=== PATIENT | female | born 1940 | race Caucasian/White ===

== ENCOUNTER → 2016-11-19 | Outpatient (CLI) | payer OTHER ==
[~2016-11-19] MED LIST: ALL300; CRG25; IBUP-1050 PO; LSN20
[2016-11-19 17:30] LABS: BASO % 0.3 %; BASO ABS # 0.03 K/uL (0-0.2); COMPLETE YES; EOS % 3.3 %; IG% 0.2 %; LYMPH % 22.1 %; LYMPH ABS # 2.02 K/uL (1.2-3.4); MEAN CELL VOLUME 88.5 fL (80-100); MEAN CORPUSCULAR HEMOGLOBIN 28.4 pg (25-34); MEAN CORPUSCULAR HGB CONC 32.1 g/dl (32-36); MEAN PLATELET VOLUME 10.8 fL (7.4-10.4); MONO % 7.2 %; NEUT % 66.9 %; PLATELET COUNT 291 K/uL (130-400); RED BLOOD COUNT 3.73 M/uL (4.2-5.4); WHITE BLOOD COUNT 9.14 K/uL (4.8-10.8)
[2016-11-19 17:56] LABS: BLOOD UREA NITROGEN 31 mg/dl (7-18); CALCIUM 9.6 mg/dl (8.5-10.1); CARBON DIOXIDE 31 mmol/L (21-32); CHLORIDE 103 mmol/L (98-107); GLUCOSE 79 mg/dl (70-99); POTASSIUM 4.2 mmol/L (3.5-5.1); SODIUM 139 mmol/L (136-145)
[2016-11-19 18:02] LABS: FERRITIN 72.5 ng/ml (8.0-388.0); TOTAL IRON BINDING CAPACITY 346 mcg/dl (250-450)
--- NOTE | 2016-11-24 10:55 | CODING QUERY MEDICAL NECESSITY ---
SUPPORTING DIAGNOSIS NEEDED A supporting diagnosis is required for the test/procedure performed on this patient in order for us to be reimbursed by the patient's insurance. Please provide a supporting diagnosis for the following test/procedure listed below next to the test name along with your signature. *If there is no additional diagnosis for this patient that would support the following test/procedure please document that below next to the test/procedure. Test(s)/Procedure(s) that require a supporting diagnosis: DOS 11/19 * Vitamin B12 DIAGNOSIS: Provider Signature: Date: Thank you Ivonne Cortez [facility] Information Management Once completed, please kindly fax back to [phone] For questions please call [phone]
== END | disposition home or self-care (01) ==
LOC: C.LAB1850 16:16
PROVIDERS: ATTEND Internal Medicine
DX: I42.0 Dilated cardiomyopathy (principal); D64.9 Anemia, unspecified

== ENCOUNTER → 2017-02-22 | Outpatient (CLI) | payer OTHER ==
[2017-02-22 14:47] LABS: BASO % 0.5 %; BASO ABS # 0.03 K/uL (0-0.2); COMPLETE YES; HEMATOCRIT 33.6 % (37-47); IG% 0.2 %; LYMPH % 23.7 %; LYMPH ABS # 1.51 K/uL (1.2-3.4); MEAN CELL VOLUME 87.7 fL (80-100); MEAN CORPUSCULAR HEMOGLOBIN 27.4 pg (25-34); MEAN CORPUSCULAR HGB CONC 31.3 g/dl (32-36); MEAN PLATELET VOLUME 10.6 fL (7.4-10.4); MONO % 8.8 %; NEUT % 63.8 %; PLATELET COUNT 287 K/uL (130-400); RED BLOOD COUNT 3.83 M/uL (4.2-5.4); WHITE BLOOD COUNT 6.36 K/uL (4.8-10.8)
== END | disposition home or self-care (01) ==
LOC: C.LAB1850 12:57
PROVIDERS: ATTEND Internal Medicine
DX: I10 Essential (primary) hypertension (principal)

== ENCOUNTER → 2018-01-03 | Outpatient (CLI) | payer OTHER ==
[2018-01-03 13:30] LABS: BASO % 0.3 %; BASO ABS # 0.02 K/uL (0-0.2); EOS % 2.7 %; EOS ABS # 0.21 K/uL (0-0.5); HEMATOCRIT 33.4 % (37-47); HEMOGLOBIN 10.7 g/dL (12.0-16.0); IG# 0.02 K/uL (0.00-0.02); MEAN CELL VOLUME 86.1 fL (80-100); MEAN CORPUSCULAR HEMOGLOBIN 27.6 pg (25-34); MEAN PLATELET VOLUME 11.2 fL (7.4-10.4); MONO % 6.2 %; MONO ABS # 0.48 K/uL (0.11-0.59); NEUT % 63.5 %; NEUT ABS # 4.95 K/uL (1.4-6.5); PLATELET COUNT 291 K/uL (130-400); RED CELL DISTRIBUTION WIDTH CV 16.4 % (11.5-14.5); RED CELL DISTRIBUTION WIDTH SD 51.1 fL (36.4-46.3); WHITE BLOOD COUNT 7.78 K/uL (4.8-10.8)
[2018-01-03 14:02] LABS: ALBUMIN 3.6 gm/dl (3.4-5.0); BLOOD UREA NITROGEN 27 mg/dl (7-18); CALCIUM 9.7 mg/dl (8.5-10.1); CARBON DIOXIDE 31 mmol/L (21-32); CREATININE 1.39 mg/dl (0.60-1.20); GLUCOSE 85 mg/dl (70-99); POTASSIUM 4.5 mmol/L (3.5-5.1); SODIUM 136 mmol/L (136-145)
[2018-01-03 14:03] LABS: PHOSPHORUS 2.8 mg/dl (2.5-4.9)
== END | disposition home or self-care (01) ==
LOC: C.LAB1850 12:23
PROVIDERS: ATTEND Internal Medicine
DX: I10 Essential (primary) hypertension (principal)

== ENCOUNTER 2019-09-20 04:48 | Inpatient (IN) ==
--- NOTE | 2019-07-25 10:46 | PAT Medication Instructions ---
Medication Instructions Date of Service July 25, 2019 Home Medications Medication Instructions Recorded carvedilol 25 mg tablet 25 mg PO BID #180 tab 06/21/19 allopurinol 300 mg tablet 300 mg PO QAM anastrozole 1 mg tablet 1 mg PO QAM hydrochlorothiazide 25 mg tablet 25 mg PO QAM carvedilol 25 mg tablet 25 mg PO BID ferrous sulfate 325 mg (65 mg iron) tablet 325 mg PO QAM acetaminophen [Tylenol Extra Strength] 500 mg PO Q6H PRN lisinopril 20 mg PO QAM ASK your prescriber and surgeon anastrozole 1 mg tablet 1 mg PO QAM DO NOT take the morning of surgery hydrochlorothiazide 25 mg tablet 25 mg PO QAM ferrous sulfate 325 mg (65 mg iron) tablet 325 mg PO QAM lisinopril 20 mg PO QAM Take morning of surgery With a small sip of water, OTHERWISE NOTHING TO EAT OR DRINK AFTER MIDNIGHT: allopurinol 300 mg tablet 300 mg PO QAM carvedilol 25 mg tablet 25 mg PO BID acetaminophen [Tylenol Extra Strength] 500 mg PO Q6H PRN (okay to take up to 4 hours prior to surgery if needed) Take evening before surgery carvedilol 25 mg tablet 25 mg PO BID acetaminophen [Tylenol Extra Strength] 500 mg PO Q6H PRN (if needed) Other Notes If you have any questions please call us at [phone] or [phone] or [phone] or [phone]
--- NOTE | 2019-07-30 10:42 | Anesthesiology Consultation ---
Date of Service July 30, 2019 Assessment & Plan (1) Encounter for pre-operative examination: - Awaiting cardiology preop evaluation scheduled 09/05 and ECHO scheduled 07/31 ([facility] [place] [facility] Chart Review Chart Review: Patient seen in Pre Admission Testing Teaching & Discussion Pre-Anesthesia Teaching/Discussion Notes: Instructed NPO after midnight before surgery,except medications with 15 cc of water. Medication instructions provided according to the PAT guidelines. History Surgery Operation Date: 09/11/19 07:00 Proposed Procedures p Left Total Hip Arthroplasty - Eyad Boyle MD Height/Weight Height: 5 ft 3 in Weight: 96.4 kg Allergies Allergy/AdvReac Type Severity Reaction Status Date / Time acetaminophen AdvReac Gastrointestinal Verified 07/30/19 09:07 [From Excedrin Migraine] Upset aspirin AdvReac Gastrointestinal Verified 07/30/19 09:07 Upset caffeine AdvReac Gastrointestinal Verified 07/30/19 09:07 [From Excedrin Migraine] Upset Medications Home Medications Medication Instructions Recorded Confirmed Last Taken allopurinol 300 mg tablet 300 mg PO QAM #90 tab 05/22/19 07/30/19 Unknown anastrozole 1 mg tablet 1 mg PO QAM 05/22/19 07/30/19 Unknown hydrochlorothiazide 25 mg tablet 25 mg PO QAM #90 tab 05/22/19 07/30/19 Unknown carvedilol 25 mg tablet 25 mg PO BID #180 tab 06/21/19 07/30/19 Unknown ferrous sulfate 325 mg (65 mg 325 mg PO QAM tab 07/05/19 07/30/19 Unknown iron) tablet acetaminophen [Tylenol Extra 500 mg PO Q6H PRN 07/24/19 07/30/19 Unknown Strength] lisinopril 20 mg PO QAM 07/24/19 07/30/19 Unknown Wheeled Walker #1 ea 07/30/19 07/30/19 Unknown Past Medical History Medical History Back pain Chronic renal insufficiency follows w/nephrology (Dr. Carrera) Congestive heart failure Degenerative joint disease of left hip Gout History of breast cancer s/p B/L mastectomy + oral chemo Hypertension Idiopathic cardiomyopathy LBBB (left bundle branch block) dating back to at least 2004 per prior [facility] EKG's Osteoarthritis Poor historian Exercise / Class Metabolic Activity III < 4 Walking/Shop/Light housework Past Family History Family History Sister Family history of diabetes mellitus Past Surgical History Surgical History History of bilateral mastectomy History of breast biopsy History of cardiac cath 2005= no stents History of tooth extraction Past Anesthesia History No Hx of Anesthesia Complications and No Family Hx of Anesthesia Complications History of PONV No Hx of PONV and No Hx of Motion Sickness Social History Smoking Status: Former smoker Do You Dip or Chew Tobacco: No Smoking End Date: Quit 20+ years ago Hx Alcohol Use: Yes Alcohol type: beer, wine and hard liquor alcohol intake frequency: holidays/special occasions only Hx Substance Use: No substance use type: does not use Review of Systems Diet related reflux (rare). Patient denies chest pain, shortness of breath, cough, wheezing, palpitations. Physical Exam Vital Signs VITALS BP 152/92 P 64 TEMP 98.1 SP02 96%RA RESP 16 PHYSICAL Full neck and c-spine range of motion. Full TMJ range of motion. TMD 2.5 finger breaths Mallampati Score 2 Dentition: intact Lungs: clear throughout to auscultation Cardiac: regular rate and rhythm, III/ systolic murmur Spine: + deviation (?kyphosis/scoliosis) Carotid arteries: negative bruit Extremities: non-pitting b/l le edema Testing Laboratory Results 07/30/19 11:20 07/30/19 11:20 PT 9.6 Seconds (9.0-12.0) 07/30/19 11:20 INR 0.9 (0.9-1.1) 07/30/19 11:20 APTT 25.1 Seconds (21.0-31.0) 07/30/19 11:20 Blood Type A Positive 07/30/19 11:20 Antibody Screen NEGATIVE 07/30/19 11:20 Electrocardiogram Date: 07/30/19 SR with first degree AVB at 63bpm. LAD. LBBB (*LBBB chronic dating back to at least 2004 per prior [facility] EKG's/pt scheduled for ECHO prior to surgery also*). Chest X-Ray Date: 07/30/19 The heart is enlarged noting atherosclerotic calcification of the thoracic aorta. The pulmonary vasculature is noncongested. A hiatal hernia is noted. There is mild bibasilar atelectasis. Degenerative change and mild hyperkyphosis are noted in the thoracic spine. Cardiomegaly with no active disease in the chest. Hiatal hernia. Echocardiogram Date: 04/27/18 EF 55%. Septal motion consistent with BBB. Mild cLVH. Type I DD. Borderline LAE. Mild mitral annular calcification. Mild TR.
--- NOTE | 2019-07-30 12:16 | XRay Report ---
TWO VIEW CHEST CLINICAL HISTORY: Preoperative examination. FINDINGS: PA and lateral chest radiographs are correlated with PET/CT dated 04/05/2018. The PA view is degraded by patient rotation. The heart is enlarged noting atherosclerotic calcification of the thora cic aorta. The pulmonary vasculature is noncongested. A hiatal hernia is noted. There is mild bibasil ar atelectasis. No airspace consolidation or pleural effusion is identified. There is no pneumothorax . The skeletal structures are osteopenic. The bony thorax appears intact. Degenerative change and mil d hyperkyphosis are noted in the thoracic spine. IMPRESSION: 1. Cardiomegaly with no active disease in the chest. 2. Hiatal hernia. Electronically signed by: Tab Hernandez M.D. 07/30/2019 12:15 PM
[2019-07-30 13:06] LABS: Basophils # (auto) 0.03 K/uL (0-0.2); Basophils % (auto) 0.5 %; Eosinophils # (auto) 0.19 K/uL (0-0.5); Eosinophils % (auto) 2.9 %; Hematocrit (blood only) 32.2 % (37-47); Hemoglobin 10.4 g/dL (12.0-16.0); Immature Granulocytes # (auto) 0.01 K/uL (0.00-0.02); Immature Granulocytes % (auto) 0.2 %; Lymphocytes # (auto) 1.77 K/uL (1.2-3.4); Lymphocytes % (auto) 26.7 %; Mean Corpuscular Hemoglobin 29.3 pg (25-34); Mean Corpuscular Hgb Conc 32.3 g/dL (32-36); Mean Corpuscular Volume 90.7 fL (80-100); Mean Platelet Volume 10.4 fL (7.4-10.4); Monocytes # (auto) 0.64 K/uL (0.11-0.59); Monocytes % (auto) 9.7 %; Neutrophils # (auto) 3.98 K/uL (1.4-6.5); Platelet Count 290 K/uL (130-400); RDW Coefficient of Variation 15.2 % (11.5-14.5); RDW Standard Deviation 50.3 fL (36.4-46.3); Red Blood Count 3.55 M/uL (4.2-5.4); White Blood Count 6.62 K/uL (4.8-10.8)
[2019-07-30 13:15] LABS: INR 0.9 (0.9-1.1); Partial Thromboplastin Ratio 0.9; Partial Thromboplastin Time 25.1 Seconds (21.0-31.0); Prothrombin Time 9.6 Seconds (9.0-12.0)
[2019-07-30 14:06] LABS: BUN Creatinine Ratio 25.6 (10-20); C Reactive Protein 0.8 mg/dl (0-0.29); Calcium 10.2 mg/dl (8.5-10.1); Est GFR (African American) 58.5; Est GFR (Non-African American) 50.5; Potassium 4.1 mmol/L (3.5-5.1)
--- NOTE | 2019-09-15 16:43 | History and Physical Report ---
DATE OF ADMISSION: 09/20/2019 CHIEF COMPLAINT: Left hip pain and discomfort. HISTORY OF PRESENT ILLNESS: The patient is a 79-year-old female who presents for surgical treatment of her left hip. She comes on referral by my partner, Dr. Franco, for treatment. She has a long history of hip and back pain that has gradually gotten worse over the years. She has resorted to using a cane to get around. She describes buttock pain, lateral thigh pain, groin pain radiating down to her knee, but no further. Some intermittent numbness. She has got chronic back pain as well. She has become more debilitated by her symptoms over time. Pain has gotten significantly worse in the past 6 months. She is wanting something done if possible. PAST MEDICAL HISTORY: 1. Hypertension. 2. Congestive heart failure followed by Dr. Kramer with a fairly normal echocardiogram. 3. Obesity with a BMI of 37. 4. Low back pain/sciatica. 5. Breast cancer, in remission. 6. Underlying kidney disease and inability to take NSAIDS. PAST SURGICAL HISTORY: Includes bilateral mastectomy. ALLERGIES: None. CURRENT MEDICINES: Include: 1. Carvedilol 25 mg twice a day. 2. Lisinopril 20 mg. 3. Allopurinol 300 mg. 4. Hydrochlorothiazide 25 mg a day. 5. Anastrozole 1 mg a day. SOCIAL HISTORY: A 79-year-old female. She is . Lives by herself. Does not smoke. FAMILY HISTORY: Noncontributory. REVIEW OF SYSTEMS: Significant for some underlying kidney disease and some heart disease. Denies any current chest pain or shortness of breath. No history of DVT or PE. No known bleeding problems. PHYSICAL EXAMINATION: GENERAL: Reveals a healthy pleasant elderly female. Looks to be in pretty good health. HEENT: Benign. NECK: Supple with no lymphadenopathy. LUNGS: Clear to auscultation. HEART: Has a regular rate and rhythm. ABDOMEN: Soft, nontender, nondistended. EXTREMITIES: Grossly neurovascularly intact except as follows: Examination of the left hip reveals the patient walks with a hunched over posture using a cane. She does have some mild diffuse edema in her leg. The left side is a little bit worse than the right. She is about 0.5 cm short on the left side. She does have pain with any type of hip motion, particularly internal rotation. Hip is pretty stiff. Negative straight leg raise. X-RAYS: X-rays of the left hip were reviewed. Shows moderately advanced hip DJD. She has got fairly concentric disease, most consistent with inflammatory arthritis. She has got osteophytes around the femoral head and acetabulum with protrusio appearance to the acetabulum with central wear. She has cystic changes of the femoral head. X-rays of the lumbar spine reveal fairly flat back. Moderate diffuse lumbar spondylosis. ASSESSMENT: A 79-year-old white female with a left lower extremity pain and discomfort consistent with: 1. Left hip degenerative joint disease. 2. Lumbar spondylosis/spinal stenosis. I do think her hip is a limiting factor and probably the more severe and the more significant source of the majority of her symptoms than her back. PLAN: We had a long discussion as far as treatment. I did tell her that the hip replacement surgery is not going to fix everything for her as she has got some underlying back issues and she understands this. She would like to have her left hip fixed. PLAN: We will take her to the operating room and do a left total hip replacement. The risks and benefits of this procedure were explained to the patient including but not limited to DVT, PE, , infection, neurological injury, vascular injury, bleeding problem, pain, limited range of motion, stiffness, failure to relieve symptoms, incomplete relief of symptoms, need for further surgery in the future, fracture, leg length inequality, nerve palsy, dislocation, incomplete relief of symptoms. The patient understands and desires to proceed. She is a and I believe her daughter is going to come and stay with her and she will use [facility]. She knows to hold her lisinopril the morning of surgery and take the carvedilol.
[2019-09-20] MEDS ORDERED: LR 60ML/HR IV SCH (06:00)
[2019-09-20] MEDS ORDERED: CEFAZOLIN 2000MG 2,000 MG/15 ML SYR IV SCH (06:00)
[2019-09-20] MEDS ORDERED: LR 500ML BOLUS, THEN 15ML/HR IV SCH (06:00)
[2019-09-20] MEDS ORDERED: GABAPENTIN 300 MG CAP PO SCH (06:00)
[2019-09-20] MEDS ORDERED: FAMOTIDINE 20 MG TAB PO SCH (06:00)
[2019-09-20] MEDS ORDERED: TRANEXAMIC ACID 1,000 MG **IV Pre-op IV SCH (06:00)
[2019-09-20] MEDS ORDERED: METOCLOPRAMIDE HCL 10 MG TABLET PO SCH (06:00)
[2019-09-20] MEDS ORDERED: ACETAMINOPHEN 500 MG TAB PO SCH (06:00)
[2019-09-20] MEDS ORDERED: BUPIVACAINE 0.5 % 5 MG/1 ML PF 10ML VIAL ONE (06:25)
[2019-09-20] MEDS ORDERED: fentaNYL citrate 100 MCG/2 ML VIAL ONE (06:26)
[2019-09-20] MEDS ORDERED: MIDAZOLAM HCL 1 MG/ML 2ML VIAL ONE (06:26)
[2019-09-20] MEDS ORDERED: MoRPHine SULFATE PF 1 MG/ML 10 ML AMP/VIAL ONE (06:27)
--- NOTE | 2019-09-20 06:50 | History & Physical Bridge Note ---
Date of Service September 20, 2019 History & Physical Bridge Note I have examined the patient, reviewed the History & Physical and in the interval since the performance of the History & Physical I have noted the following changes of clinical significance: no changes noted
[2019-09-20] MEDS ORDERED: BUPIVACAINE/EPINEPHRINE 0.25% 1:200,000 30 ML VIAL ONE (06:59)
[2019-09-20] MEDS ORDERED: SODIUM CHLORIDE 0.9% PF 50 ML VIAL ONE (07:00)
[2019-09-20] MEDS ORDERED: BUPIVACAINE LIPOSOME 1.3% 266 MG/20 ML VIAL ONE (07:00)
[2019-09-20] MEDS ORDERED: BACITRACIN INJ 50,000 UNIT VIAL ONE ×2 (07:00→07:18)
[2019-09-20] MEDS ORDERED: BUPIVACAINE 0.5 % 5 MG/1 ML MPF 30ML VIAL ONE (07:09)
[2019-09-20] MEDS ORDERED: EPINEPHrine INJ 1 MG/ML AMP ONE (07:09)
[2019-09-20] MEDS ORDERED: NALOXONE HCL 0.4 MG/1 ML VIAL/CARP IV PRN (07:21)
[2019-09-20] MEDS ORDERED: PROMETHAZINE HCL 12.5 MG in SODIUM CHLORIDE 0.9% 50 ML IV PRN (07:21)
[2019-09-20] MEDS ORDERED: ONDANSETRON INJ 2 MG/ML 2 ML VIAL IV PRN (07:21)
[2019-09-20] MEDS ORDERED: NALBUPHINE HCL INJ 10 MG/ML AMP IV PRN (07:21)
[2019-09-20] MEDS ORDERED: MoRPHine SULFATE PF 1 MG/ML 10 ML AMP/VIAL INT SPINAL ONE (07:21)
[2019-09-20] MEDS ORDERED: MEPERIDINE HCL 25 MG/ML CARP IV PRN (07:21)
[2019-09-20] MEDS ORDERED: NALOXONE HCL 0.08 MG in SYRINGE 1.8 ML IV PRN (07:21)
[2019-09-20] MEDS ORDERED: LACTATED RINGER'S 500 ML IV PRN (07:21)
[2019-09-20] MEDS ORDERED: DiphenhydrAMINE HCL 50 MG/ML VIAL IV PRN (07:21)
[2019-09-20] MEDS ORDERED: ePHEDrine sulfate 50 MG/ML AMP IV PRN (07:21)
[2019-09-20] MEDS ORDERED: NALOXONE HCL 1 MG in SODIUM CHLORIDE 0.9% 1000ML 1,000 ML IV PRN (07:21)
[2019-09-20] MEDS ORDERED: KETOROLAC TROMETHAMINE 15 MG/ML VIAL IV PRN (07:29)
[2019-09-20] MEDS ORDERED: SODIUM CHLORIDE 0.9% 1000ML 1,000 ML IV SCH (07:30)
[2019-09-20] MEDS ORDERED: NO NARCOTICS OR SEDATIVES SCH (07:30)
[2019-09-20] MEDS ORDERED: PHENYLEPHRINE HCL 10 MG/ML VIAL ONE (07:37)
[2019-09-20] MEDS ORDERED: ePHEDrine sulfate 50 MG/ML SYR ONE ×3 (07:37→08:04)
[2019-09-20] MEDS ORDERED: PROPOFOL IV EMULSION 10 MG/ML 20 ML VIAL IV ONE (07:37)
[2019-09-20] MEDS ORDERED: PHENYLEPHRINE 100MCG/ML 5ML SYR ONE (07:55)
[2019-09-20] MEDS ORDERED: GLYCOPYRROLATE 0.2 MG/ML VIAL ONE (08:04)
--- NOTE | 2019-09-20 09:05 | Post Operative Brief Note ---
PG Immediate Post Op with CF Date of Surgery September 20, 2019 Pre & Post Diagnosis Operation Date: 09/20/19 07:15 Pre-Op Diagnosis: Left Hip Degerative Joint Disease Post-Op Diagnosis: Left Hip Degerative Joint Disease I identified the patient and participated in the time-out.: Yes Procedure Operation Date: 09/20/19 07:15 Actual Procedures p Left Total Hip Arthroplasty(Left) - Eyad Boyle MD Surgeon Eyad Boyle MD Scowman Abby, PAC Estimated Blood Loss 300 Findings Consistent with Post-Op Diagnosis Fluids 700 cc Specimens Specimen Description: Permanent A. Left femoral head Drains Luna Catheter Anesthesia Type Spinal MAC Complications none Disposition Accompanied Patient To Recovery: Yes Disposition: Recovery Room
--- NOTE | 2019-09-20 09:42 | XRay Report ---
XR hip 1V LT w pelvis CLINICAL HISTORY: Postoperative evaluation. COMPARISON: MRI of the left hip/femur April 27, 2018. FINDINGS: Alignment of the total left hip arthroplasty is in the stomach. There is no fracture or un expected radiopaque foreign body. There are skin maged. Acetabular screw is in place. IMPRESSION: Expected findings following total left hip arthroplasty. ACT 112: Negative or not required by law. Electronically signed by: Oscar Orona M.D. 09/20/2019 9:41 AM
--- NOTE | 2019-09-20 10:03 | Anesthesiology Progress Note ---
Date of Service September 20, 2019 Anesthesia Post Procedure Vital Signs Vital Signs: Temp Pulse Pulse Resp BP Pulse Ox 09/20/19 10:00 36.6 C 64 13 118/65 98 09/20/19 09:50 64 13 116/67 99 09/20/19 09:40 67 12 105/61 98 09/20/19 09:30 69 15 114/61 100 09/20/19 09:20 68 17 117/67 100 09/20/19 09:10 71 13 113/70 100 09/20/19 09:01 36.1 C L 73 22 101/64 100 09/20/19 05:32 36.6 C 64 20 170/83 H 98 Transfer of Care Handoff Completed per policy Notes Mental Status: alert / awake / arousable Patient Amnestic to Procedure: Yes Nausea / Vomiting: adequately controlled Pain: adequately controlled Airway Patency, RR, SpO2: stable & adequate BP & HR: stable & adequate Hydration State: stable & adequate Anesthetic Complications: no major complications apparent
[2019-09-20] MEDS ORDERED: ALUMINUM/MAGNESIUM SUSP 30 ML UDC PO PRN (10:34)
[2019-09-20] MEDS ORDERED: bisacodyL 10 MG SUPP PR PRN (10:34)
[2019-09-20] MEDS ORDERED: MAGNESIUM HYDROXIDE SUSP 30 ML UDC PO PRN (10:34)
[2019-09-20] MEDS: SODIUM CHLORIDE 0.9% 1000ML 1,000 ML IV SCH ×2 (11:22→20:16)
--- NOTE | 2019-09-20 11:55 | Operative Report ---
Post Operative Report Pre & Post Diagnosis Operation Date: 09/20/19 07:15 Pre-Op Diagnosis: Left Hip Degerative Joint Disease Post-Op Diagnosis: Left Hip Degerative Joint Disease I identified the patient and participated in the time-out.: Yes Procedure Operation Date: 09/20/19 07:15 Actual Procedures p Left Total Hip Arthroplasty(Left) - Eyad Boyle MD Surgeon Eyad Boyle MD Rn Otolaryngology Abby, PAC Estimated Blood Loss 300 Findings Consistent with Post-Op Diagnosis Operative findings revealed advanced left hip DJD with extensive eburnation of the femoral head circumferentially. She had a protrusio appearance to the acetabulum. She did have full-thickness cartilage wear but not a lot of osteophyte formation. She had a moderate-sized joint effusion. Very stiff hip with a flexion contracture of about 20 to 30 degrees preoperatively. Fluids 700 cc Specimens Left femoral head sent for pathology Drains None. Anesthesia Type Spinal MAC Complications none Disposition Accompanied Patient To Recovery: Yes Disposition: Recovery Room Indications Patient is a 79-year-old female is had a several year history of increasing left hip pain discomfort is gotten significant worse over the past year the point where she is had using a walking assistance device to get around. She is got known back problems as well but symptoms seem to localize more to her hip. She failed all conservative care. X-rays revealed advanced hip DJD. She elected proceed with surgical treatment. Description of Procedure Operative implants consisted of: 1. Biomet G7 size 50 mm acetabular shell. 2. 6.5 cancellus acetabular screws 1 of 35 mm length and 120 mm length. 3. Brunswick hole eliminator. 4. 50 mm outer diameter, 36 mm inner diameter highly cross-linked polyethylene liner. 5. Depuy Corail size 12 KLA femoral stem. 6. +1.5/36 mm ceramic articular ball. Patient was taken to the operating room identified and placed on the operating table supine position protectors were properly padded. IV antibiotics were 5 by anesthesia team. Spinal anesthetic had been implemented holding area. Luna catheter was placed in sterile fashion with patient then placed in the right lateral decubitus position. Axillary roll was placed. Stulberg hip positioner was used for positioning. The left hip and leg were then prepped and draped in usual sterile fashion. A posterior lateral approach to the left hip was then performed to a curvilinear incision centered over the greater trochanter. Sharp dissection Through subcutaneous tissue down below the IT band and gluteal fascia. That the soft tissue envelope was quite thick. The IT band gluteal fascia were then incised longitudinally in line with skin incision. The underlying greater truck bursa was excised. The piriformis and external rotators as well as the posterior capsule were then released as a single guitar player the posterior aspect of the hip joint. Great care was taken throughout the procedure to protect the sciatic nerve at all times. Hip was internally rotated and dislocated. Femoral neck osteotomy cut was made with Final Cut about 5 mm above the lesser trochanter. Femoral head was removed and sent for pathology. The femur was retracted anteriorly. Attention drawn the acetabulum. The acetabular labrum was excised with the pulmonary fat was excised. Sequential reaming the acetabular was then performed given the size 45 and progressing up to a 49. I did anterior the acetabular just with a 50 reamer as it narrowed on the opening. A 50 mm Biomet G7 acetabular shell was then placed in about 40 degrees lateral opening and 25 degrees of anteversion. I did place an additional amp degree of anteversion in this patient due to her flexion contracture and concerned with the posterior instability. This was fixed with two 6.5 cancellus acetabular screws. An anterior osteophyte was removed. The trial liner was placed. Attention drawn the femur. Proximal femur was entered with a cookie-cutter followed by canal finder. I then broached begin the size 8 and progressing up to a 12. We got excellent fit with a 12. Use a calcar reamer to smooth off the calcar. Then trialed the hip with different head sizes. I initially used a standard neck but the everything was too tight particular in extension. I elected to use a coxa vera/KLA neck with the shortest head neck length. Even this was a little bit tight in extension but improved. The hip was fully stable in full extension and external rotation and flexion to 90 degrees internal rotation over [address] We elect to place these implants. Leg lengths appeared equal. All trial implants were removed. An apex hole eliminator was placed. Highly cross-linked polyethylene liner was placed. We did elect to use a 36 head in order to maximize her stability. He size 12 KLA femoral stem was impacted in position. A +1.5/36 mm ceramic articular ball was placed. Hip was located once again found to be stable. Attention drawn toward closing. The wound was irrigated with copious amounts of pulsatile lavage solution. I did inject locally with 60 cc of percent Marcaine with epinephrine. The posterior capsule and external rotators were repaired through drill holes in the posterior trochanter as a single layer with #2 Tycron suture. The IT band gluteal fascia then closed with #1 PDS suture running fashion the subcutaneous tissues then closed with 2 layers of the deep layer #2 Vicryl suture and subcutaneous tissues with 2-0 Dexon suture in a buried interrupted fashion. Skin was closed skin maged. We did place a Liat wound VAC over this incision due to a large soft and thick soft tissue envelope. Patient then transferred to the recovery room in stable condition. Patient tolerated procedure well no complications. I attest to the content of the Intraoperative Record and any orders documented therein. Any exceptions are noted below.
[2019-09-20] MEDS: CEFAZOLIN 2000MG 2,000 MG/15 ML SYR IV SCH ×2 (14:15→22:05)
[2019-09-20] MEDS: ACETAMINOPHEN 500 MG TAB PO SCH ×2 (14:15→22:05)
[2019-09-20] MEDS ORDERED: TRANEXAMIC ACID / 0.7% NACL 1,000 MG/100 ML BAG IV SCH (15:00)
--- NOTE | 2019-09-20 17:21 | Progress Note ---
DATE: 09/20/2019 SUBJECTIVE: A 79-year-old white female postop from a left hip replacement. She is doing well. Not having any pain yet. No chest pain or shortness of breath. Not feeling dizzy or lightheaded. OBJECTIVE: VITAL SIGNS: Temperature 36.4. Vital signs stable. GENERAL: Shows a pleasant elderly female. I had to wake her when I went in her room this afternoon. LUNGS: Clear to auscultation. HEART: Has a regular rate and rhythm. ABDOMEN: Soft, nontender, nondistended. EXTREMITIES: Grossly neurovascularly intact except as follows: Examination of the left hip and leg reveals the leg lengths to be equal. Leg is well aligned. Dressing is clean, dry and intact. Thigh is soft and supple. She can dorsiflex and plantarflex her foot appropriately. X-RAYS: X-rays of the left hip from recovery room are reviewed. It shows a left uncemented total hip arthroplasty. Components looked to be in good position. No signs of problems. ASSESSMENT: A 79-year-old white female postoperative from a left hip replacement, doing well. Hip is located. She is neurologically intact. Pain is controlled. PLAN: 1. DVT prophylaxis including thigh-high TEDs, SCDs, and aspirin twice a day. 2. PT/OT. Weight bear as tolerated. Left total hip protocol. 3. Pain control, doing well with current pain regimen. 4. Disposition: She is hoping to be discharged to home with some home health and some family's assistance once medically stable and recovered.
[2019-09-20] MEDS: FERROUS GLUCONATE 324 MG TAB PO SCH (18:22)
[2019-09-20] MEDS: ASCORBIC ACID 500 MG TAB PO SCH (18:22)
[2019-09-20] MEDS: ASPIRIN 81 MG ECTAB PO SCH (20:16)
[2019-09-20] MEDS: carvediloL 25 MG TAB PO SCH (20:17)
[2019-09-20] MEDS: SENNA 8.6 MG TAB PO SCH (20:17)
[2019-09-20] MEDS: DOCUSATE SODIUM 100 MG CAP PO SCH (20:17)
[2019-09-21] MEDS ORDERED: DC INTRASPINAL MORPHINE SCH (01:21)
[2019-09-21] MEDS ORDERED: HYDROmorphone INJ 0.5 MG/0.5 ML SYR IV PRN (01:22)
[2019-09-21] MEDS ORDERED: NALOXONE HCL 0.4 MG/1 ML VIAL/CARP IV PRN (01:22)
[2019-09-21] MEDS ORDERED: ONDANSETRON INJ 2 MG/ML 2 ML VIAL IV PRN (01:22)
[2019-09-21] MEDS ORDERED: METOCLOPRAMIDE HCL INJ 5 MG/ML 2 ML VIAL IV PRN (01:22)
[2019-09-21 05:29] LABS: Basophils # (auto) 0.01 K/uL (0-0.2); Basophils % (auto) 0.1 %; Eosinophils # (auto) 0.16 K/uL (0-0.5); Eosinophils % (auto) 2.1 %; Hematocrit (blood only) 24.7 % (37-47); Hemoglobin 8.1 g/dL (12.0-16.0); Immature Granulocytes # (auto) 0.02 K/uL (0.00-0.02); Immature Granulocytes % (auto) 0.3 %; Lymphocytes # (auto) 1.02 K/uL (1.2-3.4); Lymphocytes % (auto) 13.4 %; Mean Corpuscular Hemoglobin 29.8 pg (25-34); Mean Corpuscular Hgb Conc 32.8 g/dL (32-36); Mean Corpuscular Volume 90.8 fL (80-100); Monocytes # (auto) 1.12 K/uL (0.11-0.59); Monocytes % (auto) 14.7 %; Neutrophils # (auto) 5.29 K/uL (1.4-6.5); Neutrophils % (auto) 69.4 %; Platelet Count 219 K/uL (130-400); RDW Coefficient of Variation 14.3 % (11.5-14.5); RDW Standard Deviation 47.7 fL (36.4-46.3); Red Blood Count 2.72 M/uL (4.2-5.4); White Blood Count 7.62 K/uL (4.8-10.8)
[2019-09-21] MEDS: ACETAMINOPHEN 500 MG TAB PO SCH ×3 (05:46→21:56)
[2019-09-21 05:51] LABS: BUN Creatinine Ratio 22.8 (10-20); Calcium 8.6 mg/dl (8.5-10.1); Creatinine Clr Calc Pharmacy 44.8 ml/min; Est GFR (African American) 54.1; Est GFR (Non-African American) 46.7; Potassium 4.3 mmol/L (3.5-5.1)
[2019-09-21] MEDS ORDERED: dexAMETHasone 4 MG TAB PO SCH (08:00)
--- NOTE | 2019-09-21 08:03 | Anesthesiology Progress Note ---
Date of Service September 21, 2019 Anesthesia Post Procedure Vital Signs Vital Signs: Temp Pulse Pulse Resp BP Pulse Ox Pulse Ox 09/21/19 07:05 36.4 C L 67 16 139/72 97 09/21/19 02:55 36.5 C 67 16 115/72 98 09/21/19 01:23 16 100 09/21/19 00:17 20 98 09/21/19 00:16 14 100 09/20/19 23:20 16 100 09/20/19 23:05 36.4 C L 56 L 18 106/70 100 09/20/19 22:11 16 100 09/20/19 21:10 12 100 09/20/19 20:13 14 100 09/20/19 20:12 58 L 14 101/65 100 09/20/19 20:10 100 09/20/19 19:21 36.4 C L 58 L 14 108/71 100 09/20/19 18:10 12 100 09/20/19 17:15 14 100 09/20/19 16:15 16 100 09/20/19 15:33 36.4 C L 68 16 107/66 100 09/20/19 15:20 100 09/20/19 15:15 14 96 09/20/19 14:45 16 95 09/20/19 13:50 70 H 99 09/20/19 13:48 96/59 L 09/20/19 13:15 36.4 C L 61 16 85/56 L 100 09/20/19 12:15 36.3 C L 61 16 97/61 L 98 09/20/19 11:26 86 16 104/65 99 09/20/19 10:46 60 14 102/64 99 09/20/19 10:15 62 16 111/77 99 99 09/20/19 10:00 36.6 C 64 13 118/65 98 09/20/19 09:50 64 13 116/67 99 09/20/19 09:40 67 12 105/61 98 09/20/19 09:30 69 15 114/61 100 09/20/19 09:20 68 17 117/67 100 09/20/19 09:10 71 13 113/70 100 09/20/19 09:01 36.1 C L 73 22 101/64 100 Notes Mental Status: alert / awake / arousable and participated in evaluation Patient Amnestic to Procedure: Yes Nausea / Vomiting: adequately controlled Pain: adequately controlled Airway Patency, RR, SpO2: stable & adequate BP & HR: stable & adequate Hydration State: stable & adequate Neuraxial Anesthesia: was administered and sensory block resolved Anesthetic Complications: no major complications apparent and Pt Satisfied with anesthetic care
--- NOTE | 2019-09-21 08:21 | Progress Note ---
DATE: 09/21/2019 SUBJECTIVE: A 79-year-old white female postop day 1 from a left hip replacement. She is doing pretty well. No pain at all while in bed. Having some moderate pain with weightbearing. No chest pain or shortness of breath. Not feeling dizzy or lightheaded. OBJECTIVE: VITAL SIGNS: Temperature 36.4. Vital signs stable. GENERAL: Shows a pleasant, elderly female. She is lying in bed, looks pretty comfortable this morning. EXTREMITIES: Examination of the left leg reveals the leg to be well aligned. She has got chronic swelling of her left foot. Dressing is clean, dry and intact. She can dorsiflex and plantarflex her foot appropriately. She is neurologically intact. LABORATORY DATA: Hemoglobin is 8.1. Hematocrit 24.7. Electrolytes are stable. ASSESSMENT: This is a 79-year-old white female postop day 1 from a left hip replacement, doing reasonably well. Her hemoglobin was a bit low, but she is asymptomatic. Her pain is controlled. PLAN: 1. DVT prophylaxis including thigh-high TEDs, SCDs, and aspirin twice a day. 2. PT/OT. Weight bear as tolerated. Left total hip protocol. 3. Pain control, doing pretty well with current pain regimen. Will have to be careful and limit narcotics to avoid confusion. 4. Anemia. Continue iron supplementation. We will check her H and H tomorrow. We will transfuse unless her hemoglobin goes below 8 and/or symptomatic. 5. Disposition: She is hoping to be discharged home with some home health once adequately recovered and medically stable.
[2019-09-21] MEDS: allopurinoL 300 MG TAB PO SCH (08:58)
[2019-09-21] MEDS: MULTIVITAMIN TAB PO SCH (08:58)
[2019-09-21] MEDS: FERROUS GLUCONATE 324 MG TAB PO SCH ×2 (08:58→16:33)
[2019-09-21] MEDS: ASCORBIC ACID 500 MG TAB PO SCH ×2 (08:59→16:33)
[2019-09-21] MEDS: DOCUSATE SODIUM 100 MG CAP PO SCH ×2 (08:59→21:54)
[2019-09-21] MEDS: TRAMADOL HCL 50 MG TABLET PO PRN ×2 (09:01→21:53)
[2019-09-21] MEDS: ASPIRIN 81 MG ECTAB PO SCH ×2 (09:05→21:55)
[2019-09-21] MEDS: hydroCHLOROthiazide 25 MG TAB PO SCH (09:07)
[2019-09-21] MEDS: lisinopriL 20 MG TAB PO SCH (09:07)
[2019-09-21] MEDS: carvediloL 25 MG TAB PO SCH ×2 (09:07→21:59)
[2019-09-21] MEDS: ANASTROZOLE 1 MG TAB PO SCH (09:08)
[2019-09-21] MEDS: SENNA 8.6 MG TAB PO SCH (21:55)
[2019-09-22] MEDS: ACETAMINOPHEN 500 MG TAB PO SCH (05:21)
[2019-09-22 06:04] LABS: Basophils # (auto) 0.01 K/uL (0-0.2); Basophils % (auto) 0.1 %; Hematocrit (blood only) 25.5 % (37-47); Hemoglobin 8.8 g/dL (12.0-16.0); Immature Granulocytes # (auto) 0.07 K/uL (0.00-0.02); Immature Granulocytes % (auto) 0.4 %; Lymphocytes # (auto) 0.92 K/uL (1.2-3.4); Mean Corpuscular Hemoglobin 30.2 pg (25-34); Mean Corpuscular Hgb Conc 34.5 g/dL (32-36); Mean Corpuscular Volume 87.6 fL (80-100); Monocytes # (auto) 1.63 K/uL (0.11-0.59); Monocytes % (auto) 8.8 %; Neutrophils % (auto) 85.7 %; Platelet Count 238 K/uL (130-400); RDW Coefficient of Variation 14.2 % (11.5-14.5); RDW Standard Deviation 45.4 fL (36.4-46.3); Red Blood Count 2.91 M/uL (4.2-5.4); White Blood Count 18.43 K/uL (4.8-10.8)
[2019-09-22 06:17] LABS: BUN Creatinine Ratio 27.1 (10-20); Calcium 9.9 mg/dl (8.5-10.1); Creatinine Clr Calc Pharmacy 44.8 ml/min; Est GFR (African American) 54.1; Est GFR (Non-African American) 46.7; Potassium 3.9 mmol/L (3.5-5.1)
--- NOTE | 2019-09-22 08:36 | Progress Note ---
DATE: 09/22/2019 SUBJECTIVE: A 79-year-old white female postop day 2 from a left hip replacement. She is doing okay and making progress, but it has been more difficult than she anticipated as far as mobilization. She now would like to go to rehab. Denies any new complaints. Pain is controlled. No chest pain or shortness of breath. Not feeling dizzy or lightheaded. OBJECTIVE: VITAL SIGNS: Temperature 36.6. Vital signs stable. GENERAL: Shows a pleasant elderly female. She is sitting up in her bedside chair, looks comfortable. Color looks good. EXTREMITIES: Examination of left hip reveals the wound VAC to be in place. Leg lengths were equal. Hip is located. She is neurologically intact. LABORATORY DATA: Hemoglobin is improved at 8.8. Hematocrit 25.5. White cell count elevated, likely related to stress. No focal signs of infection. Her labs are stable. Her creatinine is stable. ASSESSMENT: A 79-year-old white female postop day 2 from left hip replacement, doing reasonably well. She has now decided she wants to go to rehab, which I think is a good decision on her part. PLAN: 1. DVT prophylaxis including thigh-high TEDs, SCDs, and aspirin twice a day. 2. PT/OT. Weight bear as tolerated. Left total hip protocol. 3. Pain control, doing okay with current pain regimen. 4. Disposition: We are going to look into getting her to a rehab. She is orthopedically stable. Hemoglobin and hematocrit are stable and will continue iron supplementation.
[2019-09-22] MEDS: carvediloL 25 MG TAB PO SCH (08:44)
[2019-09-22] MEDS: lisinopriL 20 MG TAB PO SCH (08:44)
[2019-09-22] MEDS: ANASTROZOLE 1 MG TAB PO SCH (08:44)
[2019-09-22] MEDS: hydroCHLOROthiazide 25 MG TAB PO SCH (08:44)
[2019-09-22] MEDS: DOCUSATE SODIUM 100 MG CAP PO SCH (08:45)
[2019-09-22] MEDS: FERROUS GLUCONATE 324 MG TAB PO SCH (08:45)
[2019-09-22] MEDS: ASCORBIC ACID 500 MG TAB PO SCH (08:45)
[2019-09-22] MEDS: ASPIRIN 81 MG ECTAB PO SCH (08:45)
[2019-09-22] MEDS: MULTIVITAMIN TAB PO SCH (08:45)
[2019-09-22] MEDS: allopurinoL 300 MG TAB PO SCH (08:45)
--- NOTE | 2019-09-26 16:37 | Discharge Summary ---
ADMITTING PHYSICIAN AND SURGEON: Dr. Eyad Boyle. ADMITTING DIAGNOSIS: Left hip degenerative joint disease. SURGERY PERFORMED: Left total hip arthroplasty. SECONDARY DIAGNOSES: Hypertension, congestive heart failure, obesity, low back pain, sciatica, breast cancer, underlying kidney disease. CONSULTS: None obtained. HISTORY AND PHYSICAL EXAMINATION: Well documented in the patient's chart. HOSPITAL COURSE: The patient was admitted on 09/20/2019 underwent total hip arthroplasty. She tolerated the procedure well. There were no complications. She was transferred to the PACU postoperatively and later to the orthopedic floor for further care. She was given Ancef for antibiotic prophylaxis, GALE stockings, SCDs and aspirin for DVT prophylaxis. Hemoglobin, hematocrit and vital signs were monitored during her hospital stay and remained stable. She did develop some postoperative anemia, did not require any blood transfusions. She did receive an iron supplement. There were no complications during her hospital stay. By postoperative day 2, she was tolerating a regular diet, pain was reasonably controlled with oral pain medicine. She was participating in physical therapy. Postop day 2, she was transferred to rehab facility. She was given printed discharge instructions as well as new prescriptions for extra strength Tylenol, aspirin, iron supplement and tramadol. Continue her home medications, continue physical therapy, weightbearing as tolerated, GALE stockings, total hip precautions. Follow up approximately 2 weeks postop or sooner if there are any problems or concerns.
== END 2019-09-22 13:32 | DRG 470 ==
LOC: ASU 04:48 → 3E 09:13

== ENCOUNTER 2022-11-16 07:45 | Observation (INO) ==
--- NOTE | 2022-10-25 09:23 | PAT Medication Instructions ---
Medication Instructions Date of Service October 25, 2022 Home Medications Medication Instructions Recorded Leonard Melvin #1 ea 07/30/19 Joe Summers #1 ea 10/04/19 allopurinol 300 mg tablet 300 mg PO QAM #90 tabs 10/29/21 carvedilol 25 mg tablet 25 mg PO BID #180 tabs 10/29/21 hydrochlorothiazide 25 mg tablet 25 mg PO QAM #90 tabs 10/29/21 lisinopril 20 mg tablet 20 mg PO QAM #90 tabs 03/23/22 Leonard Summers allopurinol 300 mg tablet 300 mg PO QAM carvedilol 25 mg tablet 25 mg PO BID hydrochlorothiazide 25 mg tablet 25 mg PO QAM iron,carbonyl 65 mg-vitamin C 125 mg tablet,delayed release (Vitron-C) 1 tab PO QDL lisinopril 20 mg tablet 20 mg PO QAM rosuvastatin 10 mg tablet (Crestor) 10 mg PO QPM ascorbic acid (vitamin C) 500 mg tablet (Vitamin C) 500 mg PO DAILY cholecalciferol (vitamin D3) 25 mcg (1,000 unit) tablet (Vitamin D3) 25 mcg PO DAILY DO NOT take the morning of surgery hydrochlorothiazide 25 mg tablet 25 mg PO QAM iron,carbonyl 65 mg-vitamin C 125 mg tablet,delayed release (Vitron-C) 1 tab PO QDL lisinopril 20 mg tablet 20 mg PO QAM ascorbic acid (vitamin C) 500 mg tablet (Vitamin C) 500 mg PO DAILY cholecalciferol (vitamin D3) 25 mcg (1,000 unit) tablet (Vitamin D3) 25 mcg PO DAILY Take morning of surgery With a small sip of water, OTHERWISE NOTHING TO EAT OR DRINK AFTER MIDNIGHT: allopurinol 300 mg tablet 300 mg PO QAM carvedilol 25 mg tablet 25 mg PO BID Take evening before surgery carvedilol 25 mg tablet 25 mg PO BID rosuvastatin 10 mg tablet (Crestor) 10 mg PO QPM Other Notes If you have any questions please call us at [phone] or [phone] or [phone] or [phone]
--- NOTE | 2022-10-25 09:26 | PAT Medication Instructions ---
Medication Instructions Date of Service October 25, 2022 Home Medications Medication Instructions Recorded Leonard Melvin #1 ea 07/30/19 Joe Summers #1 ea 10/04/19 allopurinol 300 mg tablet 300 mg PO QAM #90 tabs 10/29/21 carvedilol 25 mg tablet 25 mg PO BID #180 tabs 10/29/21 hydrochlorothiazide 25 mg tablet 25 mg PO QAM #90 tabs 10/29/21 lisinopril 20 mg tablet 20 mg PO QAM #90 tabs 03/23/22 allopurinol 300 mg tablet 300 mg PO QAM carvedilol 25 mg tablet 25 mg PO BID hydrochlorothiazide 25 mg tablet 25 mg PO QAM iron,carbonyl 65 mg-vitamin C 125 mg tablet,delayed release (Vitron-C) 1 tab PO QDL lisinopril 20 mg tablet 20 mg PO QAM rosuvastatin 10 mg tablet (Crestor) 10 mg PO QPM ascorbic acid (vitamin C) 500 mg tablet (Vitamin C) 500 mg PO DAILY cholecalciferol (vitamin D3) 25 mcg (1,000 unit) tablet (Vitamin D3) 25 mcg PO DAILY DO NOT take the morning of surgery hydrochlorothiazide 25 mg tablet 25 mg PO QAM iron,carbonyl 65 mg-vitamin C 125 mg tablet,delayed release (Vitron-C) 1 tab PO QDL lisinopril 20 mg tablet 20 mg PO QAM ascorbic acid (vitamin C) 500 mg tablet (Vitamin C) 500 mg PO DAILY cholecalciferol (vitamin D3) 25 mcg (1,000 unit) tablet (Vitamin D3) 25 mcg PO DAILY Take morning of surgery With a small sip of water, OTHERWISE NOTHING TO EAT OR DRINK AFTER MIDNIGHT: allopurinol 300 mg tablet 300 mg PO QAM carvedilol 25 mg tablet 25 mg PO BID Take evening before surgery carvedilol 25 mg tablet 25 mg PO BID rosuvastatin 10 mg tablet (Crestor) 10 mg PO QPM Other Notes If you have any questions please call us at [phone] or [phone] or [phone] or [phone]
--- NOTE | 2022-10-28 11:20 | Anesthesiology Consultation ---
Date of Service October 28, 2022 Assessment & Plan (1) Encounter for pre-operative examination: - right arm restriction. - awaiting cardiology evaluation 11/15/22. - Outpatient joint assessment: Patient is currently scheduled for inpatient pathway. If re-evaluated pending system levels during current pandemic/surgeon requests outpatient pathway, patient is not acceptable candidate for outpatient joint program from anesthesia standpoint. Chart Review Chart Review: Pending: Refer to Additional Notes / Consult section and Patient seen in Pre Admission Testing Teaching & Discussion Pre-Anesthesia Teaching/Discussion Notes: Instructed NPO after midnight before surgery, except medications with 15 cc of water. Medication instructions provided according to the PAT guidelines. History Surgery Operation Date: 11/16/22 08:50 Proposed Procedures p Right Total Knee Arthroplasty - Eyad Boyle MD Height/Weight Height: 5 ft 3 in Weight: 90.718 kg Allergies Allergy/AdvReac Type Severity Reaction Status Date / Time peanut Allergy Intermediate Joint Pain Verified 10/22/22 15:03 aspirin AdvReac Intermediate Gastrointestinal Verified 10/22/22 15:03 Upset Medications Home Medications Medication Instructions Recorded Confirmed Last Taken Wheeled Walker #1 ea 07/30/19 10/14/22 Unknown Joe Hose #1 ea 10/04/19 10/14/22 Unknown allopurinol 300 mg tablet 300 mg PO QAM #90 tabs 10/29/21 10/22/22 12/31/21 04:00 carvedilol 25 mg tablet 25 mg PO BID #180 tabs 10/29/21 10/22/22 12/31/21 04:00 hydrochlorothiazide 25 mg tablet 25 mg PO QAM #90 tabs 10/29/21 10/22/22 12/31/21 04:00 iron,carbonyl 65 mg-vitamin C 125 1 tab PO QDL 12/31/21 10/22/22 12/30/21 mg tablet,delayed release (Vitron-C) lisinopril 20 mg tablet 20 mg PO QAM #90 tabs 03/23/22 10/22/22 Unknown rosuvastatin 10 mg tablet (Crestor) 10 mg PO QPM 09/24/22 10/22/22 Unknown ascorbic acid (vitamin C) 500 mg 500 mg PO DAILY 10/22/22 10/22/22 Unknown tablet (Vitamin C) cholecalciferol (vitamin D3) 25 25 mcg PO DAILY 10/22/22 10/22/22 Unknown mcg (1,000 unit) tablet (Vitamin D3) Past Medical History Medical History (Updated 10/29/22 @ 08:39 by Leeann Ritchie PA-C) Aortic stenosis mild Back pain Chronic renal [place] [facility] [place]) Claustrophobia Congestive heart failure [place] [facility] 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 EKGs Limb alert care status right arm Patient denies h/o stroke, seizures, DM, blood clots or blood transfusions. Exercise / Class Metabolic Activity III < 4 Walking/Shop/Light housework (ambulates with walker; denies chest discomfort or shortness of breath with usual activities) Past Family History Family History Sister Family history of diabetes mellitus Other No family history of adverse response to anesthesia Past Surgical History Surgical History History of bilateral mastectomy RUE limb restriction History of breast biopsy History of cardiac cath 2004 > no stents History of tooth extraction History of total hip arthroplasty Left JOSIAH (09/20/19): SAB at L3/4 (x1 attempt) at [facility]. No issues noted per post-op anesthesia progress note. Past Anesthesia History No Hx of Anesthesia Complications and No Family Hx of Anesthesia Complications History of PONV No Hx of PONV and No Hx of Motion Sickness Social History Smoking Status: Never smoker Do You Dip or Chew Tobacco: No Hx Alcohol Use: Yes Alcohol type: beer, wine and hard liquor alcohol intake frequency: holidays/special occasions only substance use type: does not use Review of Systems Patient denies chest pain, shortness of breath, dyspnea on exertion, snoring, witnessed apneas, fever, chills, cough, wheezing, or palpitations. Physical Exam Vital Signs Vitals BP 156/74 P 60 TEMP 98.7 SP02 97% on RA RESP 18 Physical Full cervical extension range of motion without pain TMD 3.5 finger breadths Mallampati Score 2 Dentition: front upper left chipped tooth; denies chipped or loose teeth, caps/crowns, implants or bridges Lungs: normal respiratory effort. Clear throughout to auscultation, no adventitious breath sounds Cardiac: regular rate and rhythm, murmur Carotid arteries: negative bruit bilat Lab Results Anesthesia Preop Results Results Anesthesia Widget: WBC 6.32 K/ul (4.8-10.8) 10/28/22 Hgb 11.0 g/dl (12.0-16.0) L 10/28/22 Hct 32.3 % (37.0-47.0) L 10/28/22 Plt 239 K/uL (130-400) 10/28/22 Na 132 mmol/L (136-145) L 10/28/22 K 3.9 mmol/L (3.5-5.1) 10/28/22 Cl 99 mmol/L (98-107) 10/28/22 CO2 29 mmol/L (21-32) 10/28/22 BUN 21 mg/dl (6-23) 10/28/22 Creat 1.09 mg/dl (0.6-1.2) 10/28/22 Glucose Level 93 mg/dl (70-99(Fasting)) 10/28/22 PT 10.1 Seconds (9.0-12.0) 10/28/22 PTT 28.5 Seconds (21.0-31.0) 10/28/22 INR 0.9 (0.9-1.1) 10/28/22 Blood Type A Positive 10/28/22 Antibody Screen NEGATIVE 10/28/22 Testing Electrocardiogram Date: 10/28/22 Sinus bradycardia with 1st degree AV block, rate 56 bpm LBBB Chest X-Ray Date: 10/28/22 Lung volumes are normal. Lungs are clear. There is no pneumothorax or pleural effusion. Cardiac size is stable. A hiatal hernia is again noted. There is no evidence for pulmonary edema. Soft tissues project over the right lower lung. IMPRESSION: No acute cardiopulmonary findings. No change in appearance of the chest. Echocardiogram Date: 09/27/22 EF 50% Normal LV wall motion Mild cLVH Mild valvular aortic stenosis Mild mitral regurgitation Mild tricuspid regurgitation Grade I diastolic dysfunction Borderline dilated ascending aorta COVID-19 Risk Screen Screening Information COVID-19 Screen Date: 10/28/22 Exposure 21 Days Family/Household +COVID Last 21 Days: No Exposure 10 Days Any COVID Exposure Last 10 Days: No Symptoms Last 10 Days Experienced COVID Sx Last 10 Days: No + COVID 0-90 Days COVID + in Last 0-90 Days: No
--- NOTE | 2022-11-13 10:57 | History and Physical Report ---
DATE OF ADMISSION: 11/16/2022 CHIEF COMPLAINT: Bilateral knee pain and discomfort, right side a bit worse than the left. HISTORY OF PRESENT ILLNESS: The patient is an 82-year-old female from [place], well known to me from previous hip replacement in the past. She has a long history of bilateral knee pain and discomfort. It has gotten gradually worse over time. We have treated her with injections, which really did not help much at all. She continues to be limited by her knee pain. It is global pain. The more she is up and on it, the more the knees hurt. She uses a cane to get around. She would like to have her k nees fixed. PAST MEDICAL HISTORY: 1. Hypertension. 2. Elevated cholesterol. 3. Obesity with BMI of 34.2. 4. Breast cancer in remission, status post mastectomy. 5. Congestive heart failure, followed by Dr. Kramer. 6. Low back pain/sciatica. 7. Unspecified kidney disease and limited NSAID ability. PAST SURGICAL HISTORY: Includes: 1. Bilateral mastectomy. 2. Left total hip replacement on 09/20/2019. ALLERGIES: None. CURRENT MEDICATIONS: 1. Tylenol. 2. Allopurinol. 3. Carvedilol. 4. Hydrochlorothiazide. 5. Iron. 6. Lisinopril. 7. Crestor. SOCIAL HISTORY: An 82-year-old female who lives by herself. Her daughter is going to come and stay with her and she is from [place]. Does not smoke. FAMILY HISTORY: Noncontributory. REVIEW OF SYSTEMS: Negative for diabetes. She has got some underlying kidney disease, but normal cr eatinine. She does follow up with Dr. Kramer for congestive heart failure and she has a preoperative appointment. PHYSICAL EXAMINATION: GENERAL: Shows a pleasant, elderly female. Looks to be in pretty good health. HEENT: Benign. NECK: Supple. No lymphadenopathy. LUNGS: Clear to auscultation. HEART: Regular rate and rhythm. ABDOMEN: Soft, nontender, nondistended. EXTREMITIES: Grossly neurovascularly intact except as follows: Examination of the right knee reveal s the patient ambulates with use of a cane. She has got moderate soft tissue envelope. She has got valgus alignment to her knee, which is increased with weightbearing. Small knee effusion. Range of motion 5-120. No instability. X-RAYS: X-rays of the right knee reviewed. It shows advanced right knee lateral compartment DJD. S he has complete loss of her lateral joint space. Osteophytes laterally as well. She has got signifi cant patellofemoral disease. She has got pretty similar, but less severe disease on the left side. ASSESSMENT: An 82-year-old female status post a left hip replacement with advanced bilateral knee de generative joint disease, right side more symptomatic than left. She has failed conservative treatme nt and would like to have her right knee replaced. PLAN: We are going to take him to the operating room and do right total knee replacement. The risks and benefits of this procedure were explained to the patient and include but not limited to DVT, PE, , infection, neurological injury, vascular injury, bleeding problem, pain, limited range of mot ion, stiffness, failure to relieve her symptoms, incomplete relief of symptoms, etc. The patient und erstands and desires to proceed. Informed consent was obtained. She is hoping to be discharged to home. Her daughter from [place] is going to come and stay with [facility] for 2 weeks. She does have a cardiac evaluation with Dr. Kramer shortly before surgery. Assuming she gets cleared, we will proceed as described above. She knows to hold her lisinopril on the morning of surgery and take her carvedilol. Due to her GI issues we are going to use Xarelto for DVT prophylaxis. Job ID: [id number]
[~2022-11-16 07:45] MED LIST changes: +ACETAMINOPHEN 500 MG TAB PO SCH; -ALL300; +BUPIVACAINE 0.5 % 5 MG/1 ML PF 10ML VIAL ONE; +BUPIVACAINE LIPOSOME/PF 266 MG, BUPIVACAINE/EPINEPHRINE 50 ML, SODIUM CHLORIDE 0.9% PF ... INFIL SCH; -CRG25; +CeleBREX 200 MG CAP PO SCH; +FAMOTIDINE 20 MG TAB PO SCH; -IBUP-1050 PO; +LR 500ML BOLUS, THEN 15ML/HR IV SCH; +LR 60ML/HR IV SCH; -LSN20; +METOCLOPRAMIDE HCL 10 MG TABLET PO SCH; +ROPIVACAINE 0.5% 5 MG/ML 30 ML VIAL ONE; +TRANEXAMIC ACID 1,000 MG **IV Intra-op IV SCH; +ceFAZolin 2000MG 2,000 MG/15 ML SYR IV SCH
--- NOTE | 2022-11-16 09:12 | History & Physical Bridge Note ---
Date of Service November 16, 2022 History & Physical Bridge Note I have examined the patient, reviewed the History & Physical and in the interval since the performance of the History & Physical I have noted the following changes of clinical significance: no changes noted
[2022-11-16] MEDS ORDERED: fentaNYL citrate PF 100 MCG/2 ML VIAL IV PRN (09:38)
[2022-11-16] MEDS ORDERED: ePHEDrine sulfate 50 MG/ML AMP IV PRN (09:38)
[2022-11-16] MEDS ORDERED: ATROPINE SULFATE 0.1 MG/ML 10ML SYR IV PRN (09:38)
[2022-11-16] MEDS ORDERED: ONDANSETRON INJ 2 MG/ML 2 ML VIAL IV PRN ×2 (09:38→13:39)
[2022-11-16] MEDS ORDERED: MIDAZOLAM HCL 1 MG/ML 2ML VIAL ONE (09:49)
[2022-11-16] MEDS ORDERED: ONDANSETRON INJ 2 MG/ML 2 ML VIAL ONE (09:49)
[2022-11-16] MEDS ORDERED: LIDOCAINE 2% MPF LOCAL 5 ML VIAL INFIL ONE (09:49)
[2022-11-16] MEDS ORDERED: PROPOFOL IV EMULSION 10 MG/ML 20 ML VIAL IV ONE (09:49)
[2022-11-16] MEDS ORDERED: SODIUM CHLORIDE 0.9% PF 50 ML VIAL ONE (10:49)
[2022-11-16] MEDS ORDERED: BUPIVACAINE/EPINEPHRINE 0.25% 1:200,000 30 ML VIAL ONE (10:49)
[2022-11-16] MEDS ORDERED: BUPIVACAINE LIPOSOME 1.3% 266 MG/20 ML VIAL ONE (10:50)
[2022-11-16] MEDS ORDERED: DEXAMETHASONE SOD INJ 4 MG/ML VIAL ONE (11:29)
[2022-11-16] MEDS ORDERED: ePHEDrine sulfate 50 MG/ML AMP ONE (12:44)
--- NOTE | 2022-11-16 12:48 | Operative Report ---
PG Post Operative Report Pre & Post Diagnosis Operation Date: 11/16/22 10:40 Pre-Op Diagnosis: Right Knee Degenerative Joint Disease Post-Op Diagnosis: Right Knee Degenerative Joint Disease I identified the patient and participated in the time-out.: Yes Procedure Operation Date: 11/16/22 10:40 Actual Procedures p Right Total Knee Arthroplasty - Eyad Boyle MD Surgeon Eyad Boyle MD Wind Turbine Mechanic Eliazar Mora PA-C Estimated Blood Loss 50 Findings Consistent with Post-Op Diagnosis Operative findings revealed advanced right knee tricompartment DJD. She had extensive erosive disease in all 3 compartments most severe laterally. She had a valgus deformity to her knee. Large knee joint effusion. Diffuse osteopenia. Specimens Right knee sent for pathology Drains None Anesthesia Type Spinal MAC Complications none None Disposition Accompanied Patient To Recovery: No Indications Patient is an 82-year-old fairly active independent female who has had a lot of progressive history of bilateral knee pain discomfort right side greater than left patient been through extensive conservative treatment of years which became less successful. Pain is become more debilitating and she elected to stay with total knee replacement. Description of Procedure Operative implants consist of: 1 Biomet size 62.5 right posterior stabilized femoral component. 2. Biomet size 67 tibial tray. 3. 10 mm posterior stabilized polyethylene plus insert. 4. 31 x 8 all Paller patella. The patient was taken the operating, identified, placed on the operating table supine position protectors were properly padded. IV antibiotics arrived by anesthesia team. A spinal anesthetic and abductor canal block had provided in the holding area. Luna catheter was placed in sterile fashion for right Tetrick was then placed in the right lower extremity was then prepped and draped in usual sterile fashion. The right leg was elevated exsanguinated with use of an Esmarch and the tourniquet placed at 300 mmHg. An anterior approach of the right knee was then performed through a longitudinal incision centered over the patella. Sharp dissection was carried through subcutaneous tissue down to level of the extensor mechanism. A medial parapatellar arthrotomy incision was made. Some subperiosteal dissection was carried out medially. The fat pad was dissected from Neath patella tendon. Lateral patellofemoral ligament was released. Patella subluxated laterally and the knee was flexed. The osteophytes taken off distal femur. The ACL PCL then released from distal femur the tibia subluxated anteriorly. The external tibial alignment jig was then placed in the interface the tibia and adjusted 14 mm medially. Proximal tibial cut was made remove about 3 to 4 mm of bone from the medial side. The tibia was sized to a size 67. Attention drawn the femur. The distal femur was then with a sharp drill. Intramedullary canal was suction. A right 5 degree valgus cutting guide was placed. Distal femoral cutting block was pinned in place. This femoral cut was made to take an additional 3 mm of bone off distal femur. The femur was then sized to a size 62.5. This sized almost exactly to a 62.5. The AP cutting block was pinned parallel to the epicondylar axis which was 3 degrees of external rotation. Anterior cut, anterior chamfer, posterior cut, posterior chamfer cuts were made. The box cutting guide was placed in just slight lateral and the box cut was made. The remnants of the medial and lateral menisci were excised. The osteophytes taken off the posterior aspect of femur. Trial femoral component was placed. Tibial tray was pinned in maximum external rotation and the drill and stem punch were used to create defect in proximal tibia for the tibial tray. The knee was then trialed and 10 mm insert fit most appropriately. There still was just a little bit of laxity medially so I elected to place a PS plus insert. Attention drawn the patella. The patella was cleaned of all soft tissues. Patella thickness measured 18 mm in thickness was cut down to 12. Was sized to a size 31 patella. The lug holes were drilled for the 31 patella. The lateral osteophyte was removed. Patella button was placed. Knee was taken through range of motion patella tracked nicely with no thumbs test. Attention drawn to placing permanent components. All trial components were removed. Bone plug was placed in the distal femur limit blood loss. Double batch Palacos G cement was mixed. Biomet Vanguard size 62.5 right posterior stabilized femoral component, size 67 tibial tray, 10 mm posterior stabilized polyethylene plus insert and a 31 x 8 all Paller patella then cemented in place. New spreadout into full extension till cement hardened. Final cement check was then performed. The pericapsular tissues were injected with total 100 cc of combination of 20 cc of Exparel, 30 cc normal saline, 50 cc of quarter percent Marcaine with epinephrine. Patient did receive 1 g tranexamic acid. The tourniquet was then let down for final tourniquet time of 51 minutes. Hemostasis surgeries electrocautery. Extensor mechanism then closed with combination 1 PDS suture #1 Vicryl suture in [id number] fashion. Extensor mechanism checked found to be intact and subcutaneous tissue then closed with 2 Dexon suture in buried fashion skin was closed skin maged. Leg was then cleaned and dried and a sterile dressing was Xeroform, 4 x 4's, sterile cast padding, Simon bandage were applied. Patient then transferred to recovery room in stable condition. Patient tolerated procedure well and there were no complications. Eliazar Mora, my physician certified teacher assistant, was present for the entire procedure. His assistance was essential and required for appropriate patient positioning, prepping and draping, surgical exposure, performing the technical details of the operation, placement the implants, closure of the wound, and placement of the sterile bandage. I attest to the content of the Intraoperative Record and any orders documented therein. Any exceptions are noted below.
--- NOTE | 2022-11-16 13:19 | XRay Report ---
TWO VIEWS RIGHT KNEE CLINICAL HISTORY: Postoperative examination. FINDINGS: AP and crosstable lateral portable views of the right knee are obtained. A right knee arthr oplasty is in near anatomic alignment. There has been undersurface remodeling of the patella. No acut e fracture is seen. There are expected postoperative changes around the knee including skin clips, so ft tissue edema, and subcutaneous gas. IMPRESSION: Expected postoperative changes status post right knee arthroplasty. No acute fracture is seen. ACT 112: Negative or not required by law. Electronically signed by: Tab Hernandez M.D. 11/16/2022 1:16 PM
--- NOTE | 2022-11-16 13:31 | Anesthesiology Progress Note ---
Date of Service November 16, 2022 Anesthesia Post Procedure Vital Signs Vital Signs: Temp Pulse Pulse Resp BP Pulse Ox O2 Del Method 11/16/22 13:25 97.2 F L 61 15 157/56 H 96 Room Air 11/16/22 13:05 63 22 163/71 H 97 Room Air 11/16/22 13:15 60 24 166/76 H 95 Room Air 11/16/22 12:55 65 16 175/88 H 98 Oxymask 11/16/22 12:47 98.2 F 66 24 174/95 H 100 Oxymask 11/16/22 08:20 98.2 F 66 20 196/99 H 20 L Room Air O2 Flow Rate 11/16/22 13:25 11/16/22 13:05 11/16/22 13:15 11/16/22 12:55 6 11/16/22 12:47 6 11/16/22 08:20 Transfer of Care Handoff Completed per policy Notes Mental Status: alert / awake / arousable and participated in evaluation Patient Amnestic to Procedure: Yes Nausea / Vomiting: adequately controlled Pain: adequately controlled Airway Patency, RR, SpO2: stable & adequate BP & HR: stable & adequate Hydration State: stable & adequate Neuraxial Anesthesia: was administered and sensory block is resolving Anesthetic Complications: no major complications apparent and Pt Satisfied with anesthetic care
[2022-11-16] MEDS ORDERED: MAGNESIUM HYDROXIDE SUSP 30 ML UDC PO PRN (13:39)
[2022-11-16] MEDS ORDERED: bisacodyL 10 MG SUPP PR PRN (13:39)
[2022-11-16] MEDS ORDERED: METOCLOPRAMIDE HCL INJ 5 MG/ML 2 ML VIAL IV PRN (13:39)
[2022-11-16] MEDS ORDERED: NALOXONE HCL 0.4 MG/1 ML VIAL/CARP IV PRN (13:39)
[2022-11-16] MEDS ORDERED: HYDROmorphone INJ 0.5 MG/0.5 ML SYR IV PRN (13:39)
[2022-11-16] MEDS ORDERED: ALUMINUM/MAGNESIUM SUSP 30 ML UDC PO PRN (13:39)
[2022-11-16] MEDS ORDERED: oxyCODONE HCL IR 5 MG TAB (IMMEDIATE RELEASE) PO PRN (13:39)
[2022-11-16] MEDS: SODIUM CHLORIDE 0.9% 1000ML 1,000 ML IV SCH ×2 (14:14→23:48)
[2022-11-16] MEDS: ACETAMINOPHEN 500 MG TAB PO SCH ×2 (14:15→21:10)
[2022-11-16] MEDS: KETOROLAC TROMETHAMINE 15 MG/ML VIAL IV SCH ×2 (14:15→19:37)
[2022-11-16] MEDS: ceFAZolin 2000MG 2,000 MG/15 ML SYR IV SCH (18:25)
[2022-11-16] MEDS ORDERED: TRANEXAMIC ACID / 0.7% NACL 1,000 MG/100 ML BAG IV SCH (18:45)
[2022-11-16] MEDS ORDERED: ROSUVASTATIN CALCIUM 10 MG TAB PO SCH (21:00)
[2022-11-16] MEDS ORDERED: SENNA 8.6 MG TAB PO SCH (21:00)
[2022-11-16] MEDS: ASPIRIN 81 MG ECTAB PO SCH (21:09)
[2022-11-16] MEDS: carvediloL 25 MG TAB PO SCH (21:09)
[2022-11-16] MEDS: DOCUSATE SODIUM 100 MG CAP PO SCH (21:10)
[2022-11-17] MEDS: KETOROLAC TROMETHAMINE 15 MG/ML VIAL IV SCH ×3 (02:19→13:04)
[2022-11-17] MEDS: ceFAZolin 2000MG 2,000 MG/15 ML SYR IV SCH (02:19)
[2022-11-17] MEDS: ACETAMINOPHEN 500 MG TAB PO SCH ×2 (05:59→13:02)
[2022-11-17] MEDS: DOCUSATE SODIUM 100 MG CAP PO SCH (08:35)
[2022-11-17] MEDS: ASPIRIN 81 MG ECTAB PO SCH (08:36)
[2022-11-17] MEDS: carvediloL 25 MG TAB PO SCH (08:37)
[2022-11-17 08:38] LABS: Hematocrit (blood only) 26.7 % (37.0-47.0); Hemoglobin 9.2 g/dl (12.0-16.0); Mean Corpuscular Hemoglobin 29.8 pg (25.0-34.0); Mean Corpuscular Hgb Conc 34.5 g/dL (32.0-36.0); Mean Corpuscular Volume 86.4 fL (80.0-100.0); Platelet Count 213 K/uL (130-400); RDW Coefficient of Variation 13.9 % (11.5-14.5); RDW Standard Deviation 43.3 fL (36.4-46.3); Red Blood Count 3.09 M/uL (4.20-5.40); White Blood Count 11.53 K/ul (4.8-10.8)
[2022-11-17 09:00] LABS: BUN Creatinine Ratio 17.4 (10-20); Est GFR (African American) 41.2 ml/min; Est GFR (Non-African American) 35.5 ml/min; Potassium 3.9 mmol/L (3.5-5.1)
[2022-11-17] MEDS ORDERED: DOCUSATE SODIUM/SENNA 50/8.6MG TAB PO SCH (09:00)
[2022-11-17] MEDS ORDERED: lisinopril 20 MG TAB PO SCH (09:00)
[2022-11-17] MEDS ORDERED: allopurinoL 300 MG TAB PO SCH (09:00)
[2022-11-17] MEDS ORDERED: ASCORBIC ACID 500 MG TAB PO SCH (09:00)
[2022-11-17] MEDS ORDERED: hydroCHLOROthiazide 25 MG TAB PO SCH (09:00)
[2022-11-17] MEDS ORDERED: MULTIVITAMIN TAB PO SCH (09:00)
[2022-11-17] MEDS ORDERED: CHOLECALCIFEROL 1,000 UNITS 25 MCG TAB PO SCH (09:00)
[2022-11-17] MEDS ORDERED: FERROUS SULFATE 325 MG TAB PO SCH (11:30)
--- NOTE | 2022-11-17 16:54 | Progress Notes ---
SUBJECTIVE: An 82-year-old female postoperative day 1 from right knee replacement. She is doing wel l. She is hoping to go home. Pain is very well controlled. Therapy went well. No chest pain, shor tness of breath. Not feeling dizzy or lightheaded. OBJECTIVE: VITAL SIGNS: Temperature 36.4. Vital signs are stable. PHYSICAL EXAMINATION: GENERAL: Shows a pleasant, elderly female. She is sitting up in bed and looks pretty comfortable. LUNGS: Clear to auscultation. HEART: Regular rate and rhythm. ABDOMEN: Soft, nontender, and nondistended. EXTREMITIES: Grossly neurovascularly intact except as follows. Examination of the right leg reveals the dressing to be clean, dry, and intact. Leg is well aligned. She can dorsiflex and plantarflex her foot appropriately. She is neurologically intact. LABORATORY DATA: Hemoglobin 9.2. Hematocrit 26.7. Electrolytes are stable. Creatinine just slight ly elevated. ASSESSMENT: An 82-year-old female postoperative day 1 from a right knee replacement, doing pretty we ll. Pain is controlled. She is neurologically intact. She is hoping to go home. Creatinine is a l ittle bit elevated and we will hold her Toradol. PLAN: 1. DVT prophylaxis including thigh-high TEDs, SCDs, and she is on aspirin twice a day. 2. PT/OT, weightbear as tolerated. Right total knee protocol. 3. Pain control, doing okay with current pain regimen. 4. Elevated creatinine. We are going to stop her Toradol. Encourage p.o. intake. 5. Disposition: Plan to discharge to home with home health and her daughter's assistance. Job ID: [id number]
--- NOTE | 2022-11-20 19:21 | Discharge Summary ---
Date of Service November 20, 2022 Discharge Data Procedures Performed Operation Date: 11/16/22 10:40 Actual Procedures p Right Total Knee Arthroplasty - Eyad Boyle MD Hospital Course (1) Status post total right knee replacement: This is a 82 year old patient admitted on 11/16/22 and underwent total knee arthroplasty. She tolerated the procedure well and there were no complications. Transferred to the PACU post op and later to the orthopedic floor for further care. She was given ancef for antibiotic prophylaxis. She was also given GALE stockings, SCDs, and aspirin for DVT prophylaxis. Hemoglobin, hematocrit, and vital signs were monitored during her hospital stay and remained stable. Did not require any blood transfusions. There were no complications during her hospital stay. By post op day #1 the patient was tolerating a regular diet, pain was reasonably controlled with oral pain medicine, and she was participating in physical therapy. On post op day #1 the patient was discharged home and set up with home health care. She was given printed discharge instructions including prescriptions for extra strength tylenol, aspirin, cefadroxil, zofran, senokot, and oxycodone. Continue physical therapy, weight bearing as tolerated. Continue GALE stockings. Follow up approximately 2 weeks post op or sooner if there are problems or concerns. Coding Level of Care Code None Diagnoses Status post total right knee replacement Z96.651
== END 2022-11-17 17:18 | disposition home health service (06) ==
LOC: ASU 07:45 → 3N 07:45